=== PATIENT | female | born 1990 | race Caucasian/White ===

== ENCOUNTER 2017-12-30 11:25 | Emergency (ER) | payer OTHER ==
[2017-12-30] MEDS: TETRACAINE 0.5% 4 ML OPH LEFT EYE (14:30)
[2017-12-30] MEDS: ONDANSETRON (ODT) 4 MG TAB ODT (14:33)
[2017-12-30] MEDS: IBUPROFEN 200 MG TAB PO (14:34)
[2017-12-30] MEDS: FLUORESCEIN STRIP LEFT EYE (14:35)
== END 2017-12-30 17:06 | disposition home or self-care (01) ==
LOC: FTE 11:25
DX: S05.8X2A Other injuries of left eye and orbit, initial encounter (principal); W50.4XXA Accidental scratch by another person, initial encounter; Y92.9 Unspecified place or not applicable
CPT/HCPCS: 76536; 99284-25

== ENCOUNTER 2018-03-06 00:21 | Emergency (ER) | payer OTHER ==
[2018-03-06] MEDS: LORAZEPAM 2 MG INJ IM (00:44)
== END 2018-03-06 01:22 | disposition home or self-care (01) ==
LOC: E/R 00:21
DX: F41.9 Anxiety disorder, unspecified (principal)
CPT/HCPCS: 96372; 99284-25